=== PATIENT | female | born 1960 | race African-American/Black ===

== ENCOUNTER 2018-05-08 10:24 | Emergency (ER) | payer MEDICAID ==
[~2018-05-08] VITALS: Ht 154.9 cm; Wt 66.6 kg
[2018-05-08 10:33] VITALS: BP 160/87
[2018-05-08] MEDS ORDERED: DIAZEPAM 5 MG TABLET PO ONE (11:00)
[2018-05-08] MEDS ORDERED: KETOROLAC 30 MG/1 ML IM ONE (11:00)
[2018-05-08] MEDS ORDERED: DIAZEPAM 5 MG TABLET ONE (11:24)
[2018-05-08] MEDS ORDERED: KETOROLAC 30 MG/1 ML ONE (11:24)
== END 2018-05-08 11:58 | disposition home or self-care (01) ==
LOC: ED 11:30
DX: S16.1XXA Strain of muscle, fascia and tendon at neck level, initial encounter (principal); K21.9 Gastro-esophageal reflux disease without esophagitis; W07.XXXA Fall from chair, initial encounter; Y93.89 Activity, other specified; Y92.009 Unspecified place in unspecified non-institutional (private) residence as the place of occurrence of the external cause; Y99.8 Other external cause status
CPT/HCPCS: 72050; 96372; 99284; J1885